=== PATIENT | female | born 1945 | race Caucasian/White ===

== ENCOUNTER 2020-03-03 10:06 | Observation (INO) | payer MEDICARE, OTHER ==
[~2020-03-03] VITALS: Ht 165.1 cm; Wt 79.4 kg
[~2020-03-03 10:06] MED LIST: KEFLEX CAP 500500 MG PO; VANCOCIN HCL125 MG PO
[2020-03-03 11:08] LABS: RED BLOOD COUNT 4.67 M/UL (4.00-5.10); WHITE BLOOD COUNT 7.5 K/UL (4.5-11.0)
[2020-03-03 12:06] LABS: BUN/CREATININE RATIO 19 (0-10)
[2020-03-03] MEDS ORDERED: PROTONIX40 MG PO (15:07)
[2020-03-03] MEDS ORDERED: GABAPENTIN400 MG PO (15:08)
[2020-03-03] MEDS ORDERED: LOPRESSOR 25 MG25 MG PO (15:09)
[2020-03-03] MEDS ORDERED: GABAPENTIN300 MG PO (15:09)
[2020-03-03] MEDS ORDERED: ZESTRIL/PRINIVI10 MG PO (15:10)
[2020-03-03] MEDS ORDERED: ARIMIDEX 1 MG TA1 MG PO (15:10)
[2020-03-03] MEDS ORDERED: ASPIRIN EC81 MG PO (15:10)
[2020-03-03] MEDS ORDERED: CALTRATE 600 +1 EACH PO (15:11)
[2020-03-03] MEDS ORDERED: B COMPLEX1 EACH PO (15:11)
[2020-03-03] MEDS ORDERED: PROBIOTIC1 EAC2 PO (15:11)
[2020-03-03] MEDS ORDERED: MANNOSE PO (15:12)
[2020-03-03] MEDS ORDERED: ALPHA LIPOIC A600 MG PO (15:12)
[2020-03-03] MEDS ORDERED: HIPREX1 GM PO (15:13)
[2020-03-03] MEDS ORDERED: HYDROCODON-ACE1 EAC2 PO (15:13)
[2020-03-04 01:41] LABS: HEMOGLOBIN 13.5 gm/dl (12.3-15.3)
[2020-03-04 01:42] LABS: RED BLOOD COUNT 4.17 M/UL (4.00-5.10); WHITE BLOOD COUNT 9.8 K/UL (4.5-11.0)
[2020-03-04 02:08] LABS: BUN/CREATININE RATIO 22 (0-10)
[2020-03-05] MEDS ORDERED: LOPRESSOR 25 MG25 MG PO (15:14)
== END 2020-03-05 17:06 | disposition home or self-care (01) ==
LOC: ER1 10:06 → CDU 14:41 → MED SURG 4 17:24
PROVIDERS: Emergency Medicine; Physician Assistant; ADMIT Internal Medicine
DX: R07.9 Chest pain, unspecified (principal); R00.0 Tachycardia, unspecified; R01.1 Cardiac murmur, unspecified; R00.2 Palpitations; I95.9 Hypotension, unspecified; K21.9 Gastro-esophageal reflux disease without esophagitis; I11.9 Hypertensive heart disease without heart failure; I44.0 Atrioventricular block, first degree; E11.42 Type 2 diabetes mellitus with diabetic polyneuropathy; Z20.822 Contact with and (suspected) exposure to COVID-19; Z85.3 Personal history of malignant neoplasm of breast; Z90.12 Acquired absence of left breast and nipple; Z92.21 Personal history of antineoplastic chemotherapy; Z87.442 Personal history of urinary calculi; Z85.828 Personal history of other malignant neoplasm of skin; Z87.440 Personal history of urinary (tract) infections; Z98.890 Other specified postprocedural states; Z91.09 Other allergy status, other than to drugs and biological substances; Z79.899 Other long term (current) drug therapy; Z79.82 Long term (current) use of aspirin; Z79.891 Long term (current) use of opiate analgesic
CPT/HCPCS: ECHO; 36415; 70450; 71045; 80048; 80053; 81001; 82550; 82553; 83735; 83874; 83880; 84439; 84443; 84484; 85025; 85610; 85730; 93005; 93306; 96372; 99285; G0378; J1650; U0002

== ENCOUNTER → 2020-03-06 | Outpatient (CLI) | payer MEDICARE, OTHER ==
[~2020-03-06] MED LIST changes: +ALPHA LIPOIC A600 MG PO; +ARIMIDEX 1 MG TA1 MG PO; +ASPIRIN EC81 MG PO; +B COMPLEX1 EACH PO; +CALTRATE 600 +1 EACH PO; +GABAPENTIN300 MG PO; +GABAPENTIN400 MG PO; +HIPREX1 GM PO; +HYDROCODON-ACE1 EAC2 PO; +LOPRESSOR 25 MG25 MG PO; +MANNOSE PO; +PROBIOTIC1 EAC2 PO; +PROTONIX40 MG PO; +ZESTRIL/PRINIVI10 MG PO
== END ==
LOC: HEART 5 10:21
DX: R00.2 Palpitations (principal)